=== PATIENT | female | born 1945 | race Caucasian/White ===

== ENCOUNTER 2018-01-05 21:08 | Inpatient (IN) | payer OTHER ==
[~2018-01-05] VITALS: Ht 166.4 cm; Wt 102.5 kg
[~2018-01-05 21:08] MED LIST: DIOVAN HCT 31 TABLE1 PO; NORVASC2.5 MG PO; TYLENOL EXTRA500 MG PO
[2018-01-06] MEDS ORDERED: ZICAM (06:07)
[2018-01-06 06:11] VITALS: BP 209/88
[2018-01-06] MEDS ORDERED: IRON325 M1 PO (06:26)
[2018-01-06 11:20] VITALS: BP 126/71
[2018-01-06 15:45] VITALS: BP 149/78
[2018-01-06 20:03] VITALS: BP 175/84
[2018-01-07] VITALS: BP 160/77
[2018-01-07 04:00] VITALS: BP 145/72
[2018-01-07 06:07] LABS: HEMATOCRIT 36.4 % (36.0-46.0); HEMOGLOBIN 12.6 G/DL (11.9-15.5); MCV 91.5 FL (83-99)
[2018-01-07 06:34] LABS: CHLORIDE 106 MEQ/L (99-109); CREATININE 1.1 MG/DL (0.6-1.3); GFR ESTIMATE (CALCULATED) 52 mL/min/; GLUCOSE 130 mg/dL (70-99); POTASSIUM 4.1 MEQ/L (3.7-5.4); SODIUM 138 MEQ/L (136-147); UREA NITROGEN (BUN) 20 mg/dL (9-23)
[2018-01-07 08:08] VITALS: BP 174/77
[2018-01-07 11:38] VITALS: BP 146/65
[2018-01-07 15:36] VITALS: BP 144/66
[2018-01-07 19:36] VITALS: BP 140/71
[2018-01-08] VITALS: BP 178/79
[2018-01-08 04:00] VITALS: BP 134/74
[2018-01-08 06:16] LABS: HEMATOCRIT 36.6 % (36.0-46.0); HEMOGLOBIN 12.8 G/DL (11.9-15.5); MCV 93.4 FL (83-99)
[2018-01-08] MEDS ORDERED: CELECOXIB200 MG PO (07:43)
[2018-01-08] MEDS ORDERED: ELIQUIS2.5 MG PO (07:43)
[2018-01-08] MEDS ORDERED: OXYCODONE HCL5 MG PO (07:43)
[2018-01-08 08:19] VITALS: BP 144/78
[2018-01-08 12:13] VITALS: BP 168/72
== END 2018-01-08 13:00 | DRG 470 ==
LOC: ENRESERV 21:08 → 2SOUTH 01-06 05:27 → 3WEST 01-06 10:32 → 2SOUTH 01-06 15:06 → 3WEST 01-08 13:00
PROVIDERS: Orthopaedic Surgery
PROC: 0SRD0J9 Replacement of Left Knee Joint with Synthetic Substitute, Cemented, Open Approach (ICD-10-PCS; principal; 2018-01-06)
DX: M17.12 Unilateral primary osteoarthritis, left knee (principal); M25.562 Pain in left knee; I10 Essential (primary) hypertension; Z85.3 Personal history of malignant neoplasm of breast
CPT/HCPCS: 80048; 85014; 85018; 93971; C1713; J0131; J0690; J1100; J1885; J2250; J2405; J2795; J3010; J7050; Q0175